=== PATIENT | male | born 1945 | race Caucasian/White ===

== ENCOUNTER → 2021-02-03 | Outpatient (CLI) | payer OTHER ==
[~2021-02-03] MED LIST: ADVAIR 250-501 EACH INH; ASA81BEC PO; ASPIR 8181 M1 PO; ASPIR-TRIN325 MG PO; CARDIZEM CD 18180 M3 PO; COLACE100 MG PO; COZAAR 50 MG TA50 M2 PO; EFFIENT10 MG PO; ELIQUIS5 MG PO; FAMOTIDINE20 MG PO; FLEXERIL PO; FLOMAX0.4 MG PO; GLUCOTROL5 MG PO; METFORMIN 500500 MG PO; METFORMIN HCL500 MG PO; MYRBETRIQ25 MG PO; NORVASC PO; NORVASC10 MG PO; OXYBUTYNIN 5 MG5 M2 PO; PRAVACHOL40 MG PO; PRAVASTATIN SOD20 MG PO; PROTONIX40 M1 PO; PROTONIX40 M4 PO; ROSUVASTATIN CA20 MG PO; SIMVASTATIN10 MG PO; TOPROL XL100 MG PO; ULTRAM 50MG TAB50 MG PO
== END ==
LOC: SJCVC 14:51 → SJCVCIMAG 14:51
PROVIDERS: ATTEND Internal Medicine Cardiovascular Disease
DX: I25.9 Chronic ischemic heart disease, unspecified (principal); R00.0 Tachycardia, unspecified; I10 Essential (primary) hypertension; R06.00 Dyspnea, unspecified; E78.00 Pure hypercholesterolemia, unspecified; R53.83 Other fatigue; I48.0 Paroxysmal atrial fibrillation; E11.9 Type 2 diabetes mellitus without complications; I25.10 Atherosclerotic heart disease of native coronary artery without angina pectoris; Z79.899 Other long term (current) drug therapy; Z72.89 Other problems related to lifestyle; Z87.891 Personal history of nicotine dependence

== ENCOUNTER 2021-02-04 06:25 | Observation (INO) | payer OTHER ==
[2021-02-04] VITALS (8 sets, daily range): BP systolic 125–146; BP diastolic 56–77
[~2021-02-04] VITALS: Ht 167.6 cm; Wt 101.6 kg
[~2021-02-04 06:25] MED LIST changes: -ASA81BEC PO; -ASPIR-TRIN325 MG PO; -EFFIENT10 MG PO; -PRAVASTATIN SOD20 MG PO; -PROTONIX40 M4 PO; -ROSUVASTATIN CA20 MG PO
[2021-02-04 11:47] LABS: HEMATOCRIT 48.6 % (42.0-52.0); HEMOGLOBIN 15.8 gm/dL (14.0-18.0); MCH 29.1 pg (26.0-34.0); MCHC 32.5 g/dL (28.0-37.0); MCV 89.5 fL (80.0-100.0); RBC 5.43 mil/uL (4.50-6.00); RDW 14.4 % (10.5-14.5); WBC 6.9 thou/uL (4.0-11.0)
[2021-02-04 11:59] LABS: CALCIUM 9.1 mg/dL (8.5-10.1); CREATININE 1.9 mg/dL (0.7-1.3); POTASSIUM 4.7 mmol/L (3.5-5.1)
--- NOTE | 2021-02-04 12:05 | EKG ---
[address] [address] ELECTROCARDIOGRAM REPORT Name: NISA RICE Room #: [facility]#: [id number] Admission: Attend Phys: Bryce Lopez MD, Discharge: Date of : 43 Report #: [id number] [facility] Test Date: 2021-02-04 Test Time: 11:25:15 Pat Name: NISA RICE Department: Room: Gender: M Public Policy Analyst: elsa : 1945 Requested By: Bryce Lopez Order Number: [id number] : Edgard Baer Measurements Intervals [place] Rate: 69 P: -34 NV: 179 QRS: -36 QRSD: 89 T: 29 QT: 399 QTc: 428 Interpretive Statements Sinus rhythm Atrial premature complexes Inferior infarct, old Compared to ECG 07/21/2016 06:53:06 Atrial premature complex(es) now present Atrial fibrillation no longer present Myocardial infarct finding still present Electronically Signed On 02-04-2021 12:05:25 CDT by Edgard Baer [email or web address] <ELECTRONICALLY SIGNED> By: Edgard Baer MD, [facility] 02/04/21 1205 1125 1125 Edgard Baer MD, [facility] /EPI
[2021-02-04] MEDS ORDERED: PRAVASTATIN SOD20 MG PO (12:24)
[2021-02-04] MEDS ORDERED: ASA81BEC PO (12:25)
[2021-02-04] MEDS ORDERED: EFFIENT10 MG PO (16:08)
[2021-02-04] MEDS ORDERED: ROSUVASTATIN CA20 MG PO (16:08)
[2021-02-04] MEDS ORDERED: PROTONIX40 M4 PO (16:08)
--- NOTE | 2021-02-04 16:12 | EKG ---
[address] [address] ELECTROCARDIOGRAM REPORT Name: DWAYNENISA D Room #: 210-P [facility]#: [id number] Admission: 02/04/21 Attend Phys: Bryce Lopez MD, Discharge: Date of : 43 Report #: [id number] [facility] Test Date: 2021-02-04 Test Time: 15:09:28 Pat Name: NISA RICE Department: Room: Gender: M Senior Mortgage Loan Processor: FSCHWALBE : 1945 Requested By: Bryce Lopez Order Number: [id number] MD: Edgard Baer Measurements Intervals [place] Rate: 70 P: 41 [place]: 204 QRS: -36 QRSD: 93 T: 28 QT: 406 QTc: 439 Interpretive Statements Sinus rhythm Atrial premature complexes Left axis deviation Abnormal R-wave progression, late transition Compared to ECG 02/04/2021 11:25:15 Left-axis deviation now present Myocardial infarct finding no longer present Electronically Signed On 02-04-2021 16:12:15 CDT by Edgard Baer [email or web address] <ELECTRONICALLY SIGNED> By: Edgard Baer MD, FACC 02/04/21 1612 1509 1509 Edgard Baer MD, [facility] /EPI
[2021-02-04] MEDS ORDERED: ASPIR-TRIN325 MG PO ×2 (16:38→16:39)
--- NOTE | 2021-02-04 16:40 | CATHLAB ---
[facility] [place] [address] INVASIVE PROCEDURE REPORT Name: NISA RICE Room #: 210-P [facility] Israel Dyson#: [id number] Admission: 02/04/21 Attend Phys: Bryce Lopez MD, Discharge: Date of : 43 Report #: [id number] THIS REPORT FOR: cc: Alphonso Sosa MD, Stephen L. MD Mancuso, Gerald M. MD [facility] ~ APPROVED REPORT Study performed: 02/04/2021 11:57:55 Patient Details Patient Status: Out-Patient Room #: The patient is a 75 year-old male Event Personnel Brcye Lopez Warrant Server, Renzo Morris RN RN, Keshia Pena RT(R)() Scrub, Marlen Yen RTR Scrub, Swati Villaseñor Monitor Procedures Performed Art Access - R femoral artery* Left Heart Cath w/or w/o Coronaries [id number] [facility] [address] Initial Mod Sed Same Phys/QHP Gr5y 352998 76678 Mod Sed Same Phys/QHP Ea 032871 [facility] Place w/wo Plasty Single LAD 659408 Hemostasis w/ Mynx Indication Chest pain Procedure Narrative The Right Groin^ was infiltrated with 1% Lidocaine subcutaneous anesthesia. A PINNACLE 6FR Sheath #[id number] sheath was inserted into the RFA 6f^. Coronary angiography was performed using coronary diagnostic catheters. The right coronary system was accessed and visualized with a JR4 catheter. The left coronary system was accessed and visualized with a JL4 catheter. The left ventricle was accessed and visualized with a STR PIG catheter. The patient tolerated the procedure well and there were no complications associated with the procedure. There was no hematoma. Intraoperative Conscious Sedation Sedation start time: 1337 Case end Time: 1430 Fentanyl 100 mcg Versed 1 mg [facility] [place] [address] INVASIVE PROCEDURE REPORT Name: NISA RICE Room #: 210-P [facility] [place] ..#: [id number] Admission: 02/04/21 Attend Phys: Bryce Lopez, Discharge: Date of : 43 Report #: [id number] Fluoro Time: 4.60 minutes Dose: DAP 8665.70 cGycm2 1304 mGy Contrast Type and Amount: Visipaque 60 ml Hemodynamics The aortic pressure is 128/58 mmHg with a mean of 87 mmHg. The left ventricular pressure is 125/11 mmHg with a mean of mmHg. The left ventricular end diastolic pressure is 20 mmHg. PCI Technique Lesion Percutaneous coronary intervention was performed on the mid left anterior descending artery segment. A LAUNCHER 6FR EBU 3.5 #[id number] Guide Catheter was used to engage the ostium. A Luge Wire .014 x 182CM #[id number] Interventional Guidewire was used to cross the lesion. STENT DEPLOYMENT A stent RESOLUTE HAYDE OTW 2.5 X 12 #[id number] was inserted and inflated up to 12atm for 27seconds. Additional Inflation: 18.00atm for 22seconds. Conclusion #1 Successful PTCA stent of the proximal LAD 75 to 80% lesion with placement of a 2.5 x 12 resolute [place] postdilated 2.7 mm DIAMOND grade III flow. There is jailing of a small diagonal branch but it remain patent. Mild distal disease. #2 left main free of disease giving rise to LAD and circumflex. #3 circumflex OM is nondominant this is a widely patent vessel. #4 dominant right coronary with an eccentric 40 to 50% mid vessel lesion which remained stable in a 30 to 40% proximal lesion. Anatomically dominant. No occlusive disease. #5 left ventricular hemodynamics were obtained but no evidence of left ventriculogram due to moderate renal insufficiency. Ejection fraction is near normal noninvasively. Recommendations and plan: Continue aggressive risk factor modification. We have instituted dual antiplatelet therapy. Patient transferred to CCU in stable condition with resolution of chest pain and EKG changes. Follow post coronary stent protocol. <ELECTRONICALLY SIGNED> By: Bryce Lopez MD, FACC 02/04/21 1640 1640 1640 Bryce Lopez MD, FACC /INF
[2021-02-05 00:45] VITALS: BP 150/86
--- NOTE | 2021-02-05 03:02 | NUR ---
RESTING QUIETLY WITHOUT COMPLAINTS. UP TO BATHROOM WITH STANDBY ASSIST NEEDED. RIGHT GROIN SITE DSG C/D/I, NO HEMATOMA OR BLEEDING NOTED. TENDER TO TOUCH. WORKING ON GOALS AND PLAN OF CARE FOR NOC. CONTINUE TO ASSES CLOSELY.
[2021-02-05 04:45] VITALS: BP 153/88
[2021-02-05 07:00] VITALS: BP 155/82
[2021-02-05 09:50] VITALS: BP 155/82
== END 2021-02-05 11:40 | disposition home or self-care (01) ==
LOC: CATH 06:25 → 2N 13:57 → EDSTATUS 15:35 → 2N 02-05 11:40
PROVIDERS: ADMIT Internal Medicine Cardiovascular Disease; ATTEND Internal Medicine Cardiovascular Disease
DX: I25.110 Atherosclerotic heart disease of native coronary artery with unstable angina pectoris (principal); E78.5 Hyperlipidemia, unspecified; I48.0 Paroxysmal atrial fibrillation; E11.9 Type 2 diabetes mellitus without complications; I10 Essential (primary) hypertension; Z79.82 Long term (current) use of aspirin; Z79.899 Other long term (current) drug therapy; Z79.84 Long term (current) use of oral hypoglycemic drugs

== ENCOUNTER → 2021-05-31 | Outpatient (CLI) | payer OTHER ==
[~2021-05-31] MED LIST changes: +ASA81BEC PO; +ASPIR-TRIN325 MG PO; +EFFIENT10 MG PO; +PRAVASTATIN SOD20 MG PO; +PROTONIX40 M4 PO; +ROSUVASTATIN CA20 MG PO
== END ==
LOC: SJCVC 11:36
PROVIDERS: ATTEND Internal Medicine Cardiovascular Disease
DX: R94.31 Abnormal electrocardiogram [ECG] [EKG] (principal); I25.10 Atherosclerotic heart disease of native coronary artery without angina pectoris; I48.0 Paroxysmal atrial fibrillation; I10 Essential (primary) hypertension; E78.00 Pure hypercholesterolemia, unspecified; E11.9 Type 2 diabetes mellitus without complications; J45.909 Unspecified asthma, uncomplicated; M19.90 Unspecified osteoarthritis, unspecified site; Z87.891 Personal history of nicotine dependence; Z79.899 Other long term (current) drug therapy; Z72.89 Other problems related to lifestyle; Z88.8 Allergy status to other drugs, medicaments and biological substances